=== PATIENT | male | born 1995 | race Caucasian/White ===

== ENCOUNTER → 2019-06-05 16:22 | Outpatient (CLI) | payer BC, SELFPAY ==
[2019-06-07 16:25] LABS: Anti-Nuclear Antibody Test Negative (.)
== END ==
PROVIDERS: Referring Provider Nurse Practitioner Family; Visit Provider Nurse Practitioner Family
DX: L30.9 Dermatitis, unspecified (principal)
CPT/HCPCS: 36415; 86038